=== PATIENT | female | born 1980 | race Caucasian/White ===

== ENCOUNTER 2016-11-16 09:11 | Day surgery (SDC) | payer OTHER ==
[~2016-11-16] VITALS: Ht 139.7 cm; Wt 57.2 kg
[~2016-11-16 09:11] MED LIST: IV RINGERS,LACTATED 1000ML 1,000 ML IV SCH; LIDOCAINE 1% 1 ML SYRINGE. ID PRN; ONDANSETRON PF 4 MG/2 ML VIAL. IV PRN; PROCHLORPERAZINE 10 MG/2 ML VIAL. IV PRN; fentaNYL PF VIAL 100 MCG/2 ML VIAL IV PRN
[2016-11-16 10:21] LABS: NEG OBC UR NEG; POS OBC UR POS
[2016-11-16] MEDS ORDERED: GLUCAGON,HUMAN RECOMBINANT 1 MG/ML VIAL. ONE (10:37)
[2016-11-16] MEDS ORDERED: SURGICEL HEMOSTAT 4X8 EACH. ONE (10:37)
[2016-11-16] MEDS ORDERED: BUPIVACAINE-EPI 0.5%-1:200000 50 ML VIAL. ONE (10:37)
[2016-11-16] MEDS ORDERED: IOHEXOL 300 MG/ML 50 ML VIAL. ONE (10:37)
[2016-11-16 10:43] LABS: CALCIUM 8.8 mg/dL (8.5-10.1); CREATININE 0.7 mg/dL (0.6-1.0); GFR 94.2; POTASSIUM 3.7 mmol/L (3.5-5.1)
[2016-11-16 10:49] LABS: ALBUMIN 4.2 g/dL (3.4-5.0); ALBUMIN/GLOBULIN RATIO 1.3 (1.0-1.7); TOTAL BILIRUBIN 0.3 mg/dL (0.2-1.0); TOTAL PROTEIN 7.5 g/dL (6.4-8.2)
[2016-11-16] MEDS ORDERED: SCOPOLAMINE 1.5MG PATCH. TD ONE (10:50)
[2016-11-16] MEDS ORDERED: fentaNYL PF VIAL 100 MCG/2 ML VIAL ONE (10:54)
[2016-11-16] MEDS ORDERED: SUCCINYLCHOLINE 200 MG/10 ML VIAL. ONE (10:54)
[2016-11-16] MEDS ORDERED: ONDANSETRON PF 4 MG/2 ML VIAL. ONE ×2 (10:54→11:48)
[2016-11-16] MEDS ORDERED: PROPOFOL 20 ML IV ONE (10:54)
[2016-11-16] MEDS ORDERED: LIDOCAINE 2% 100 MG/5 ML SYRINGE. ONE (10:54)
[2016-11-16] MEDS ORDERED: MIDAZOLAM HCL/PF 2 MG/2 ML VIAL. ONE (10:54)
[2016-11-16] MEDS ORDERED: DEXAMETHASONE SOD PHOS 20 MG/5 ML VIAL. ONE (10:54)
[2016-11-16] MEDS ORDERED: VECURONIUM BOLUS 10 MG VIAL. IV ONE (10:54)
[2016-11-16] MEDS ORDERED: SCOPOLAMINE 1.5MG PATCH. TD SCH (11:01)
[2016-11-16] MEDS ORDERED: diphenhydrAMINE 50 MG/ML VIAL ONE ×2 (11:11→11:48)
[2016-11-16] MEDS ORDERED: NEOSTIGMINE METHYLSULFATE 5 MG/5 ML SYRINGE. ONE (11:35)
[2016-11-16] MEDS ORDERED: GLYCOPYRROLATE 1 MG/5 ML VIAL. ONE (11:35)
--- NOTE | 2016-11-16 11:42 | RAD ---
Intraoperative cholangiogram, 11/16/2016: History: Cholecystectomy Contrast was injected into the cystic duct remnant and 2 images recorded. 11 seconds of fluoroscopy time was utilized. There is good flow of contrast into the duodenum at the ampulla. The common duct is of normal caliber. No filling defect is seen to suggest a retained calculus. The incompletely opacified intrahepatic ducts are unremarkable. No contrast extravasation is seen. IMPRESSION: No significant abnormality is detected.
[2016-11-16] MEDS ORDERED: ACETAMINOPHEN INTRAVENOUS 100 ML IV ONE (11:44)
[2016-11-16] MEDS ORDERED: PHENYLEPHRINE in 0.9% NACL PF 1 MG/10 ML DISP.SYRIN. IV ONE (11:48)
[2016-11-16] MEDS ORDERED: FAMOTIDINE 20 MG/2 ML VIAL ONE (11:48)
[2016-11-16] MEDS ORDERED: SEVOFLURANE 61 TO 120 MINUTES. IH ONE (11:48)
[2016-11-16] MEDS ORDERED: KETOROLAC 30 MG/ML INJ FOR OR. INJ ONE (11:51)
[2016-11-16] MEDS: MORPHINE SULFATE 2 MG/ML DISP.SYRIN. IV PRN ×2 (12:25→12:40)
--- NOTE | 2016-11-16 12:27 | PDOC ---
BRIEF OPERATIVE NOTE Date: November 16, 2016 Pre-Op Diagnosis symptomatic cholelithiasis Post-Op Diagnosis same Procedure Performed l/s cholecystectomy with cholangiograms Surgeon Shubham Anesthesia Type: General Blood Loss 10cc IV Fluid 1000cc Specimens Obtained GB Findings supple GB with some omental adhesions, right sided omental adhesions, normal grams Complications none Additional Remarks Wk # [id number] CAL BAEZ MD November 16, 2016 12:27
--- NOTE | 2016-11-16 12:28 | DISCH ---
DISCHARGE INSTRUCTIONS Condition on Discharge Condition on Discharge: Stable Activity After Discharge Activity Instructions for Disc: Activity as tolerated, Avoid exertion Lifting Instructions after Dis: No heavy lifting Driving Instructions after Dis: Do not drive (3-4 days) Wound Incision Care Wound/Incision Care: Ice to area for comfort Other wound/incision instructi: november shower Saturday Follow-Up Follow up with: Shubham 11/22 CAL BAEZ MD November 16, 2016 12:28
[2016-11-16] MEDS: HYDROmorphone 2 MG/ML VIAL IV PRN ×2 (12:45→12:55)
[2016-11-16] MEDS ORDERED: SENN1TAB71 PO (13:22)
[2016-11-16] MEDS ORDERED: TRAM50TA PO (13:24)
[2016-11-16] MEDS ORDERED: TRAMADOL 50 MG TABLET. PO PRN (13:30)
--- NOTE | 2016-11-16 14:04 | OP ---
DATE OF SURGERY: 11/16/2016 PREOPERATIVE DIAGNOSIS: Symptomatic cholelithiasis. POSTOPERATIVE DIAGNOSIS: Symptomatic cholelithiasis. PROCEDURE: Laparoscopic cholecystectomy with cholangiogram. SURGEON: Cal Baez MD. ANESTHESIA: General endotracheal. ESTIMATED BLOOD LOSS: 10 mL. IV FLUIDS: 1 liter. INDICATIONS: The patient is a 36-year-old with postprandial pain and gallbladder full of stones by ultrasound. She is brought for cholecystectomy. OPERATIVE FINDINGS: There were some adhesions in the right side of the abdomen, some omental adhesions enveloped the lower two-thirds of the gallbladder. Visual inspection of the remainder of the abdomen failed to reveal obvious abnormalities. DESCRIPTION OF PROCEDURE: The patient brought to the operating suite, given a general endotracheal anesthetic and the abdomen prepped and draped in usual sterile fashion. An infraumbilical incision was infiltrated with local anesthetic, sharply incised and a 5 mm Visiport used to gain access into the abdominal cavity, taking care to avoid injury to abdominal contents. Pneumoperitoneum was established. Camera inserted and inspection carried out with results as noted above. With the table in reverse Trendelenburg rolled to the left, the epigastric, midclavicular, and lateral ports were placed under direct vision. The gallbladder was retracted superolateral through the lateral port location using an "alligator" grasper. Omental adhesions were carefully taken down with blunt and cautery dissection, taking care to avoid injury to the adjacent bowel. The cystic duct and cystic artery were isolated. The artery was clipped and divided to expose the duct and the cystic duct was then clipped on the gallbladder side. Cholangiograms were made. These were normal. In light of this, the catheter was removed. The cystic duct was clipped x 3, taking care to avoid injury or compromise of the common duct. A posterior branch of the cystic artery was isolated, ligated, and divided and the gallbladder freed from the bed with cautery dissection and placed in an EndoCatch bag. Hemostasis obtained in the fossa with some cautery and a small piece of Surgicel. No evidence of bleeding or bile leak was identified from the fossa. Table returned to level. Gallbladder delivered through the epigastric incision. Epigastric incision closed with interrupted 0 Vicryl suture. Intra-abdominal pressure decreased to 6 cm of water. No bleeding from the epigastric closure or from the midclavicular or lateral port site after its removal or from the location of the previously used "alligator" grasper. Table returned to level. Abdomen decompressed, camera slowly removed, no bleeding seen. Skin incisions closed with subcuticular 4-0 Monocryl. Steri-Strips and sterile dressings applied. The patient awakened from her anesthetic and taken to the recovery room in satisfactory condition. CAL BAEZ MD DR: [email or web address]/keesha JOB#: [id number] / [id number]
[2016-11-16 14:05] VITALS: BP 108/61
[2016-11-19] MEDS ORDERED: SCOPOLAMINE 1.5MG PATCH. TD SCH (09:00)
--- NOTE | 2016-11-19 13:34 | PATHOLOGY ---
PATHOLOGY REPORT * * * * * * * * FINAL DIAGNOSIS: Gallbladder, laparoscopic cholecystectomy: - Cholelithiasis. - Chronic cholecystitis. COMMENT: There is no evidence of malignancy. (JPM:csd; d/t: 11/19/2016) REPORT ELECTRONICALLY SIGNED BY: Gunner Fang M.D. DATE/TIME: 11/19/2016 13:27 * * * * * * * * GROSS PATHOLOGY: Received in formalin labeled "Karly Renee, gallbladder sac with contents," is a 9.6 x 3.6 x 3.4 cm, previously punctured gallbladder with pink-min serosal surfaces. Opening the gallbladder reveals a velvety, pink-min mucosa and an average wall thickness of 0.1 cm. Calculi are present displaying a yellow-min and multifaceted appearance, and no masses are noted grossly. Quality Eng sections from the body and fundus are submitted along with the proximal margin in cassette A1. (CAA; 11/16/2016) INITIAL CPT CODE(S): A; 63711 Professional services performed by [facility] [place] [address] Technical services performed by [facility] at [address] [place] [address] [address] [address]. SPECIMEN(S) RECEIVED: A.Gallbladder sac with contents CLINICAL HISTORY: Symptomatic cholelithiasis PATIENT: KARLY RENEE /AGE: 702/09/1980 (Age: 36) PATIENT #: [id number] ALT CASE #: SPECIMEN COLLECTION DATE: 11/16/2016 SPECIMEN RECEIVED DATE: 11/16/2016 [facility] - [address] [place] [address] - PHONE: [phone] * * * END OF REPORT * * *
== END 2016-11-16 15:03 | disposition home or self-care (01) ==
LOC: SURG 09:11
PROVIDERS: ATTEND Surgery
DX: K80.20 Calculus of gallbladder without cholecystitis without obstruction (principal); E66.3 Overweight; Z68.37 Body mass index [BMI] 37.0-37.9, adult; Z86.69 Personal history of other diseases of the nervous system and sense organs; Z87.09 Personal history of other diseases of the respiratory system; Z87.891 Personal history of nicotine dependence
CPT/HCPCS: 36415; 47563; 74300; 80053; 81025; J0131; J0330; J0780; J1100; J1170; J1200; J1610; J1885; J2250; J2270; J2405; J2704; J2710; J3010; J3490; Q9967; S0028; 88304; C1782; J2370; J7030; J7120